=== PATIENT | male | born 1955 | race Caucasian/White ===

== ENCOUNTER 2021-07-02 20:13 | Emergency (ER) | payer OTHER, MEDICARE, BC ==
--- NOTE | 2021-07-02 21:23 | EDM.PDOC ---
ED HPI GENERAL MEDICAL PROBLEM - General Stated Complaint: FALL AT [facility] Time Seen by Provider: 07/02/21 20:40 - History of Present Illness INITIAL COMMENTS - FREE TEXT/NARRATIVE: Patient comes emergency department today from his [facility] here in [place] after syncopal episode. This patient was without complaints earlier today. He was playing with his 8-year-old son and they play a game called monkey hug. Monkey hug involves a child squeezing his arms around the neck as hard as they can. This is something that they do on a regular basis. The child was giving his grandfather a monkey hug by squeezing bilateral arms around the base of his neck for an extended period of time. The patient suddenly felt lightheaded and had a syncopal episode and fell onto the ground. He immediately woke up. He has no headache. He has no visual acuity changes. No paresthesias. No weakness dizziness lightheadedness. He did not have any palpitations weakness dizziness lightheadedness or neurological symptoms prior to the syncope. He was otherwise without complaints earlier today. He is resting comfortably on the cot. He denies any complaints at this time. He has had no recent fever chills nausea vomiting abdominal pain. No hematuria dysuria urinary frequency. No black or tarry stools. He has had no change in his medications or therapies recently. - Related Data Allergies Allergy/AdvReac Type Severity Reaction Status Date / Time No Known Allergies Allergy Verified 07/03/21 01:54 Home Meds: Home Meds Aspirin 81 mg PO DAILY 07/03/21 [History] Ferrous Sulfate [Iron] 325 mg PO DAILY 07/03/21 [History] Multivitamin 1 each PO DAILY 07/03/21 [History] atorvaSTATin [Lipitor] 40 mg PO BEDTIME 07/03/21 [History] ED ROS GENERAL - Review of Systems Review Of Systems: Comprehensive ROS is negative, except as noted in HPI. ED EXAM, NEURO - Physical Exam Exam: See Below Exam Limited By: No Limitations General Appearance: Alert, WD/WN, No Apparent Distress Eye Exam: Right Eye: PERRL, Bilateral Eye: EOMI Ears: Normal External Exam, Normal TMs Nose: Normal Inspection, Normal Mucosa, No Blood Throat/Mouth: Normal Inspection, Normal Lips, Normal Teeth, Normal Gums, Normal Oropharynx, Normal Voice Head Exam: Atraumatic, Normocephalic Neck: Normal Inspection, Supple, Non-Tender, Full Range of Motion. No: Carotid Bruit Respiratory/Chest: No Respiratory Distress, Lungs Clear, Normal Breath Sounds, No Accessory Muscle Use, Chest Non-Tender Cardiovascular: Normal Peripheral Pulses, Regular Rate, Rhythm, No JVD, No Murmur GI/Abdominal: Normal Bowel Sounds, Soft, Non-Tender, No Organomegaly, Pelvis Stable (Male) Exam: Deferred Rectal (Males) Exam: Deferred Neurological: Alert, Normal Mood/Affect, Normal Dorsiflexion, CN II-XII Intact, Normal Plantar Flexion, Normal Gait, Normal Reflexes, No Motor/Sensory Deficits, Other (Negative Romberg. His NIH stroke scale is 0.). No: Ataxia DTR: 2+: Bicep (R), Bicep (L), Tricep (R), Tricep (L), Patella (R), Patella (L), Achilles (R), Achilles (L) Back Exam: Normal Inspection, Full Range of Motion Extremities: Normal Inspection, Normal Range of Motion, Non-Tender, No Pedal Edema, Normal Capillary Refill Psychiatric: Normal Affect, Normal Mood Skin Exam: Warm, Dry, Intact, Normal Color, No Rash Course - Vital Signs Last Recorded V/S: Last Vital Signs Temp 97.6 F 07/02/21 20:15 Pulse 59 L 07/02/21 22:05 Resp 16 07/02/21 22:05 BP 128/75 07/02/21 22:05 Pulse Ox 97 07/02/21 22:05 - Orders/Labs/Meds Labs: Laboratory Tests 07/02/21 07/02/21 Range/Units 21:03 21:03 WBC 6.1 (4.0-10.0) x10^3/uL RBC 4.29 L (4.5-6.0) x10^6/uL Hgb 12.5 L (14.0-18.0) g/dL Hct 36.9 L (40.0-52.0) % MCV 86.0 (78.0-93.0) fL MCH 29.1 (26.0-32.0) pg MCHC 33.9 (32.0-36.0) g/dL RDW Coeff of Robbie 14.1 (10.0-15.0) % Plt Count 142 (130-400) x10^3/uL Immature Gran % (Auto) 0.00 (0.00-0.43) % Neut % (Auto) 67.0 (50.0-80.0) % Lymph % (Auto) 23.5 L (25.0-50.0) % [place] % (Auto) 6.5 (2.0-11.0) % Eos % (Auto) 2.5 (0.0-4.0) % Baso % (Auto) 0.5 (0.2-1.2) % Neut # (Auto) 4.1 (1.8-7.7) x10^3/uL Lymph # (Auto) 1.4 (1.0-4.8) x10^3/uL [place] # (Auto) 0.4 (0.0-0.8) x10^3/uL Eos # (Auto) 0.2 (0.0-0.5) x10^3/uL Baso # (Auto) 0.0 (0.0-0.2) x10^3/uL Immature Gran # (Auto) 0.00 (0.00-0.07) x10^3/uL Sodium 140 (136-145) mmol/L Potassium 4.1 (3.5-5.1) mmol/L Chloride 106 (98-107) mmol/L Carbon Dioxide 29 (21-32) mmol/L Anion Gap 9.1 (5-15) mmol/L BUN 28 H (7-18) mg/dL Creatinine 1.2 (0.70-1.30) mg/dL Est Cr Clr Drug Dosing TNP Estimated GFR (MDRD) > 60 Glucose 168 H (70-99) mg/dL Calcium 8.5 (8.5-10.1) mg/dL Corrected Calcium 9.1 (8.5-10.1) mg/dL Total Bilirubin 0.4 (0.2-1.0) mg/dL AST 25 (15-37) U/L ALT 27 (16-63) U/L Alkaline Phosphatase 54 (46-116) U/L Troponin I High Sens 7 (<=76) ng/L Total Protein 6.3 L (6.4-8.2) g/dL Albumin 3.3 L (3.4-5.0) g/dL Globulin 3.0 Albumin/Globulin Ratio 1.10 - Re-Assessments/Exams Free Text/Narrative Re-Assessment/Exam: His laboratory evaluation is rather unremarkable other than a hemoglobin of 12.5. Although he has a regular donator of blood. He had just donated a couple of weeks ago. CMP unremarkable. Normal troponin. The patient is asymptomatic. This is clearly a vasovagal type syncope caused by compression most likely other carotid arteries. Is asymptomatic prior to the incident and at this time. He has never had any palpitations or other weakness dizziness lightheadedness to be concerned of a cardiogenic type syncope although I think it would be best if he had a Holter monitor placed which he could have done at the primary care set ting in follow-up. Discharge instructions as below are explained to the patient he was comfortable with this plan and his questions are answered. Departure - Departure Time of Disposition: 22:13 Disposition: Home, Self-Care 01 Clinical Impression: Syncope Qualifiers: Syncope type: vasovagal syncope Qualified Code(s): R55 - Syncope and collapse - Discharge Information Instructions: Syncope, [id number] Referrals: PCP,Not In Area [Primary Care Provider] - Forms: ED Department Discharge Additional Instructions: Home rest. Lots of fluids the next few days. Make position changes slowly. I would recommend not having the squeezing on the neck which is most likely why you had your syncopal episode. Return to the ED if new or worsening symptoms. Follow up with PCP as needed.
[2021-07-02 21:31] LABS: CHLORIDE,CL 106 mmol/L (98-107); SODIUM,NA 140 mmol/L (136-145)
[2021-07-02 21:40] LABS: ANION GAP 9.1 mmol/L (5-15)
--- NOTE | 2021-07-03 00:01 | PCM.EKG ---
#1 Interpretation EKG Date: 07/03/21 Time: 20:26 Rhythm: NSR Rate (Beats/Min): 68 [place]: Normal P-Wave: Present QRS: Normal ST-T: Normal QT: Normal Comparison: No Change
== END 2021-07-02 22:30 | disposition home or self-care (01) ==
LOC: VM.ED 20:13
DX: R55 Syncope and collapse (principal); Z79.82 Long term (current) use of aspirin; Z79.899 Other long term (current) drug therapy
CPT/HCPCS: 36415; 80053; 84484; 85025; 93005; 99284; 99284-25